=== PATIENT | female | born 1965 | race Caucasian/White ===

== ENCOUNTER → 2023-05-25 07:51 | Outpatient (REF) | payer BC, SELFPAY | LOC: WDC 07:51 | PROVIDERS: ATTENDING PHYSICIAN Obstetrics & Gynecology; FAMILY PHYSICIAN Nurse Practitioner Adult Health | DX: R92.8 Other abnormal and inconclusive findings on diagnostic imaging of breast (principal) | CPT/HCPCS: 76642 ==

== ENCOUNTER → 2023-11-06 09:07 | Outpatient (REF) | payer BC, SELFPAY | LOC: HWWDC 09:07 | PROVIDERS: ATTENDING PHYSICIAN Obstetrics & Gynecology; FAMILY PHYSICIAN Nurse Practitioner Adult Health | DX: Z12.31 Encounter for screening mammogram for malignant neoplasm of breast (principal) | CPT/HCPCS: 77063; 77067 ==

== ENCOUNTER → 2023-11-27 10:48 | Outpatient (REF) | payer BC, SELFPAY | LOC: WDC 10:48 | PROVIDERS: ATTENDING PHYSICIAN Obstetrics & Gynecology; FAMILY PHYSICIAN Nurse Practitioner Adult Health | DX: R92.30 Dense breasts, unspecified (principal) | CPT/HCPCS: 76641 ==

== ENCOUNTER → 2024-03-04 12:30 | Outpatient (REF) | payer BC, SELFPAY | LOC: HWRCS 12:30 | PROVIDERS: ATTENDING PHYSICIAN Internal Medicine Cardiovascular Disease; FAMILY PHYSICIAN Nurse Practitioner Adult Health | DX: I42.9 Cardiomyopathy, unspecified (principal) | CPT/HCPCS: 93306 ==

== ENCOUNTER → 2024-11-06 07:32 | Outpatient (REF) | payer BC, SELFPAY | LOC: WDC 07:32 | PROVIDERS: ATTENDING PHYSICIAN Obstetrics & Gynecology; FAMILY PHYSICIAN Nurse Practitioner Adult Health | DX: Z12.31 Encounter for screening mammogram for malignant neoplasm of breast (principal) | CPT/HCPCS: 77063; 77067 ==